=== PATIENT | female | born 1980 | race Two or more races ===

== ENCOUNTER → 2020-05-10 08:00 | Outpatient (CLI) | payer OTHER | END | disposition home or self-care (01) | LOC: PPH VACUNA 08:00 | DX: Z23 Encounter for immunization (principal) ==

== ENCOUNTER 2021-05-26 07:30 | Outpatient (CLI) | payer OTHER | END 2021-05-26 07:32 | disposition home or self-care (01) | LOC: LAB 07:30 | PROVIDERS: ATTEND Internal Medicine | DX: E11.65 Type 2 diabetes mellitus with hyperglycemia (principal); E03.8 Other specified hypothyroidism; I10 Essential (primary) hypertension; E55.9 Vitamin D deficiency, unspecified ==

== ENCOUNTER 2021-05-29 08:00 | Outpatient (CLI) | payer OTHER | END 2021-05-29 08:30 | disposition home or self-care (01) | LOC: PPH VACUNA 08:00 | PROVIDERS: ATTEND Emergency Medicine Pediatric Emergency Medicine | DX: Z23 Encounter for immunization (principal) ==

== ENCOUNTER 2021-07-14 08:00 | Outpatient (CLI) | payer OTHER | END 2021-07-14 08:30 | disposition home or self-care (01) | LOC: PPH VACUNA 08:00 | PROVIDERS: ATTEND Emergency Medicine Pediatric Emergency Medicine | DX: Z23 Encounter for immunization (principal) ==

== ENCOUNTER 2021-12-01 07:35 | Outpatient (CLI) | payer OTHER | END 2021-12-01 07:40 | disposition home or self-care (01) | LOC: LAB 07:35 | PROVIDERS: ATTEND General Practice | DX: E78.5 Hyperlipidemia, unspecified (principal); E55.9 Vitamin D deficiency, unspecified; N39.0 Urinary tract infection, site not specified; R42 Dizziness and giddiness ==

== ENCOUNTER 2021-12-06 10:15 | Outpatient (CLI) | payer OTHER | END 2021-12-06 10:19 | disposition home or self-care (01) | LOC: MAMO-SONO 10:15 | PROVIDERS: ATTEND General Practice | DX: N64.4 Mastodynia (principal) ==

== ENCOUNTER 2022-05-16 14:16 | Outpatient (CLI) | payer OTHER | END 2022-05-16 14:21 | disposition home or self-care (01) | LOC: PPH VACUNA 14:16 | PROVIDERS: ATTEND Emergency Medicine Pediatric Emergency Medicine | DX: Z23 Encounter for immunization (principal) ==

== ENCOUNTER 2022-05-24 13:19 | Outpatient (CLI) | payer OTHER | END 2022-05-24 13:24 | disposition home or self-care (01) | LOC: LAB 13:19 | PROVIDERS: ATTEND General Practice | DX: R50.9 Fever, unspecified (principal); R06.02 Shortness of breath; Z20.822 Contact with and (suspected) exposure to COVID-19 ==

== ENCOUNTER 2022-11-23 08:02 | Outpatient (CLI) | payer OTHER | END 2022-11-23 14:47 | disposition home or self-care (01) | LOC: LAB 08:02 | PROVIDERS: ATTEND Radiology Diagnostic Radiology | DX: R10.12 Left upper quadrant pain (principal) ==

== ENCOUNTER 2022-12-10 07:32 | Outpatient (CLI) | payer OTHER | END 2022-12-10 07:38 | disposition home or self-care (01) | LOC: TOM 07:32 | PROVIDERS: ATTEND Internal Medicine Gastroenterology | DX: R10.12 Left upper quadrant pain (principal) ==

== ENCOUNTER 2023-01-16 06:40 | Outpatient (CLI) | payer OTHER | END 2023-01-16 12:01 | disposition home or self-care (01) | LOC: LAB 06:40 | PROVIDERS: ATTEND Internal Medicine Gastroenterology | DX: K52.9 Noninfective gastroenteritis and colitis, unspecified (principal) ==

== ENCOUNTER 2024-06-15 09:35 | Inpatient (IN) | payer OTHER ==
[~2024-06-15] VITALS: Ht 152.4 cm; Wt 90.7 kg
[~2024-06-15 09:35] MED LIST: PROAIR RESPICL90 MCG; ZYRTEC10 M3 PO
[2024-06-15] MEDS ORDERED: ALBUTEROL SULFATE 3 ML/2.5 MG AMPUL.NEB IH SCH (11:15)
[2024-06-15] MEDS ORDERED: METHYLPREDNISOLONE SOD SUCC 125 MG VIAL IV ONE (11:15)
[2024-06-15 11:31] LABS: ABG PO2 86.9 mmHg (80-100); ABG pCO2 36.7 mmHg (35-45); BICARBONATE 22.2 mmol/l (23-25); SaO2 96.5 %; Tco2 23.4 mmol/l
[2024-06-15 12:07] LABS: allen test SATISFACTORY; o2 21 %; puncture site RADIAL RIGHT
[2024-06-15 13:30] LABS: HEMATOCRIT 37.3 % (36.0-45.00); HEMOGLOBIN 12.2 g/dL (12.0-15.00); MEAN CELL VOLUME 75.7 fL (80.00-100.00); MEAN CORPUSCULAR HEMOGLOBIN 24.7 pg (27.00-32.0); MEAN CORPUSCULAR HGB CONC 32.6 g/dl (32.0-36.0); PLATELET COUNT 362 K/uL (150-450); RED BLOOD COUNT 4.93 M/uL (4.00-6.00); RED CELL DISTRIBUTION WIDTH 15.7 % (11.5-14.5)
[2024-06-15] MEDS ORDERED: IPRATROPIUM BROMIDE 0.5 MG/2.5 ML AMPUL.NEB IH ONE (14:30)
[2024-06-15] MEDS ORDERED: 0.9 % SODIUM CHLORIDE 1,000 ML IV SCH (19:30)
[2024-06-15] MEDS ORDERED: AZITHROMYCIN 500 MG in DEXTROSE 5 % IN WATER 250 ML IV SCH (19:31)
[2024-06-15] MEDS ORDERED: CEFTRIAXONE SODIUM 2,000 MG in 0.9 % SODIUM CHLORIDE 100 ML IV SCH (19:32)
[2024-06-15] MEDS ORDERED: METHYLPREDNISOLONE SOD SUCC 40 MG VIAL IV SCH (19:32)
[2024-06-15] MEDS ORDERED: ACETAMINOPHEN 500 MG GEL..CAP PO PRN (19:45)
[2024-06-15] MEDS ORDERED: IPRATROPIUM/ALBUTEROL SULFATE 3 ML AMPUL.NEB IH SCH (21:00)
[2024-06-15 22:26] LABS: INR 1.12; PARTIAL THROMBOPLASTIN TIME 30.6 SECONDS (22.0-34.0); PROTHROMBIN TIME 12.1 SECONDS (9.0-11.5)
[2024-06-15] MEDS ORDERED: BENZONATATE 100 MG CAPSULE PO SCH (22:35)
[2024-06-15] MEDS ORDERED: GUAIFEN/DEXTROMETHORPHAN/PE 10 ML BLIST.PACK PO PRN (22:45)
[2024-06-15 23:10] LABS: ALBUMIN 3.4 gm/dL (3.4-5.0); BILIRUBIN TOTAL 0.23 mg/dL (0.3-1.2); CREATININE SERUM 0.86 mg/dL (0.55-1.02); GFR 71.35; GLOBULINA 3.7 G/DL (2.4-3.5); POTASSIUM 4.25 mEq/L (3.5-5.1); TOTAL PROTEIN 7.1 gm/dL (6.4-8.2)
[2024-06-16 00:39] VITALS: BP 159/90; O2SAT 99
[2024-06-16 03:05] LABS: PH,URINE 5.5 (5.0-8.0); URINE APPEARANCE Clear; URINE BILIRRUBIN Negative (NEGATIVE); URINE BLOOD Negative; URINE COLOR Yellow; URINE GLUCOSE Negative (NEGATIVE); URINE KETONE Trace (NEGATIVE); URINE LEUKOCYTE Negative; URINE NITRATE Negative; URINE PROTEIN Negative (NEGATIVE); URINE UROBILINOGEN 0.2 E.U./dl
[2024-06-16 03:09] LABS: URINE EPITHELIAL CELLS 11.8 uL (0.0-38.8); URINE RBC 2.9 uL (0.0-20.8)
[2024-06-16 05:51] VITALS: BP 165/98; O2SAT 99
[2024-06-16 07:57] VITALS: BP 179/85
[2024-06-16] MEDS ORDERED: FAMOTIDINE/PF 20 MG in 0.9 % SODIUM CHLORIDE 8 ML IV PUSH SCH (09:00)
[2024-06-16] MEDS ORDERED: FLUTICASONE PROPIONATE 50 MCG SPRAY NASAL SCH (09:00)
[2024-06-16 11:09] LABS: MAGNESIUM 2.4 mg/dL (1.8-2.4); PHOSPHOROUS 2.7 mg/dL (2.5-4.9)
[2024-06-16 11:12] LABS: C-REACTIVE PROTEIN 1.18 MG/DL (0.00-0.29)
[2024-06-16 11:47] LABS: MYCOPLASMA PNEUMONIAE IGM NON REACTIVE (NO REACTIVE)
[2024-06-16] MEDS ORDERED: MONTELUKAST SODIUM 10 MG TABLET PO SCH (17:00)
[2024-06-16 18:13] VITALS: BP 160/85; O2SAT 98
[2024-06-16] MEDS ORDERED: LORATADINE 10 MG TABLET PO SCH (21:00)
[2024-06-17] MEDS ORDERED: METHYLPREDNISOLONE SOD SUCC 40 MG VIAL IV SCH (01:00)
[2024-06-17 01:03] VITALS: BP 147/61; O2SAT 97
[2024-06-17 09:13] LABS: HEMATOCRIT 34.1 % (36.0-45.00); HEMOGLOBIN 11.1 g/dL (12.0-15.00); MEAN CELL VOLUME 75.2 fL (80.00-100.00); MEAN CORPUSCULAR HEMOGLOBIN 24.4 pg (27.00-32.0); MEAN CORPUSCULAR HGB CONC 32.5 g/dl (32.0-36.0); PLATELET COUNT 382 K/uL (150-450); RED BLOOD COUNT 4.53 M/uL (4.00-6.00)
[2024-06-17 09:35] VITALS: BP 160/85; O2SAT 98
[2024-06-17 09:53] LABS: ALBUMIN 3.2 gm/dL (3.4-5.0); BILIRUBIN TOTAL 0.25 mg/dL (0.3-1.2); CALCIUM 8.9 mg/dL (8.5-10.1); CREATININE SERUM 0.82 mg/dL (0.55-1.02); GFR 75.39; GLOBULINA 3.5 G/DL (2.4-3.5); MAGNESIUM 2.2 mg/dL (1.8-2.4); PHOSPHOROUS 2.7 mg/dL (2.5-4.9); POTASSIUM 3.89 mEq/L (3.5-5.1); TOTAL PROTEIN 6.7 gm/dL (6.4-8.2)
[2024-06-17 10:01] LABS: C-REACTIVE PROTEIN 0.46 MG/DL (0.00-0.29)
[2024-06-17] MEDS ORDERED: BUDESONIDE 0.25 MG/2 ML AMPUL.NEB IH NR (11:45)
[2024-06-17 12:50] LABS: PH,URINE 6.5 (5.0-8.0); URINE APPEARANCE Clear; URINE BILIRRUBIN Negative (NEGATIVE); URINE BLOOD Negative; URINE COLOR Yellow; URINE GLUCOSE Negative (NEGATIVE); URINE KETONE Negative (NEGATIVE); URINE LEUKOCYTE Negative; URINE NITRATE Negative; URINE PROTEIN Negative (NEGATIVE); URINE UROBILINOGEN 0.2 E.U./dl
[2024-06-17 12:53] LABS: URINE BACTERIA 12.5 uL (0.0-1933); URINE EPITHELIAL CELLS 39.5 uL (0.0-38.8); URINE RBC 4.4 uL (0.0-20.8); URINE WBC 3.7 uL (0.0-23.2)
[2024-06-17] MEDS ORDERED: BENZONATATE 200 MG CAPSULE PO SCH (13:00)
[2024-06-17 13:26] LABS: URINE CAST 0.15 uL (0.0-1.40)
[2024-06-17 18:37] VITALS: BP 150/80
[2024-06-17] MEDS ORDERED: BUDESONIDE 0.25 MG/2 ML AMPUL.NEB IH SCH (21:00)
[2024-06-18 00:59] VITALS: BP 120/64
[2024-06-18 08:53] VITALS: BP 170/100
[2024-06-18] MEDS ORDERED: ONDANSETRON HCL 2 MG/ML VIAL IV ONE (10:00)
[2024-06-18] MEDS ORDERED: ENALAPRILAT DIHYDRATE 1.25 MG/ML VIAL IV ONE (10:00)
[2024-06-18] MEDS ORDERED: LOSARTAN POTASSIUM 25 MG TABLET PO NR (17:45)
[2024-06-18 17:52] VITALS: BP 188/101; O2SAT 97
[2024-06-18 19:43] LABS: HEMATOCRIT 36.2 % (36.0-45.00); HEMOGLOBIN 11.6 g/dL (12.0-15.00); MEAN CORPUSCULAR HEMOGLOBIN 24.4 pg (27.00-32.0); MEAN CORPUSCULAR HGB CONC 32.1 g/dl (32.0-36.0); PLATELET COUNT 448 K/uL (150-450); RED BLOOD COUNT 4.76 M/uL (4.00-6.00); RED CELL DISTRIBUTION WIDTH 15.5 % (11.5-14.5)
[2024-06-18] MEDS ORDERED: FUROsemide 20 MG/2 ML VIAL IV SCH (20:06)
[2024-06-18] MEDS ORDERED: NITROGLYCERIN IN 5 % DEXTROSE 50 MG/250 ML BOTTLE IV SCH (20:15)
[2024-06-18] MEDS ORDERED: FAMOTIDINE/PF 20 MG in 0.9 % SODIUM CHLORIDE 8 ML IV PUSH SCH (21:00)
[2024-06-19 01:36] VITALS: BP 131/81
[2024-06-19 06:42] LABS: MEAN CELL VOLUME 74.9 fL (80.00-100.00); MEAN CORPUSCULAR HEMOGLOBIN 24.7 pg (27.00-32.0); PLATELET COUNT 429 K/uL (150-450); RED BLOOD COUNT 4.81 M/uL (4.00-6.00); RED CELL DISTRIBUTION WIDTH 15.8 % (11.5-14.5)
[2024-06-19 06:49] LABS: HEMOGLOBIN 11.9 g/dL (12.0-15.00)
[2024-06-19] MEDS ORDERED: NITROGLYCERIN IN 5 % DEXTROSE 250 ML IV SCH (07:00)
[2024-06-19 07:09] LABS: ALBUMIN 3.4 gm/dL (3.4-5.0); ALKALINE PHOSPHATASE 78 U/L (50-136); ALT/SGPT 42 U/L (12-78); ANION GAP 12 (10.0-20.0); AST/SGOT 10 U/L (15-37); BILIRUBIN TOTAL 0.36 mg/dL (0.3-1.2); BLOOD UREA NITROGEN 17 mg/dL (7-18); BUN CREA RATIO 26 (7.0-25.0); CALCIUM 9.3 mg/dL (8.5-10.1); CARBON DIOXIDE 26 mEq/L (21-32); CHLORIDE 104 mmol/L (98-107); CREATININE SERUM 0.66 mg/dL (0.55-1.02); GFR 96.85; GLOBULINA 3.6 G/DL (2.4-3.5); GLUCOSE FASTING 122 mg/dL (65-100); OSMOLALITY SERUM 277 MOSM/KG (275-295); PHOSPHOROUS 4.3 mg/dL (2.5-4.9); POTASSIUM 4.67 mEq/L (3.5-5.1); SODIUM 137 mmol/L (136-145)
[2024-06-19 07:10] LABS: C-REACTIVE PROTEIN < 0.29 MG/DL (0.00-0.29)
[2024-06-19] MEDS ORDERED: FAMOtidine 20 MG TABLET PO SCH (09:00)
[2024-06-19] MEDS ORDERED: LOSARTAN POTASSIUM 25 MG TABLET PO SCH (09:00)
[2024-06-19 09:50] VITALS: BP 156/90; O2SAT 99
[2024-06-19 18:17] VITALS: BP 156/80; O2SAT 98
[2024-06-19] MEDS ORDERED: METHYLPREDNISOLONE SOD SUCC 40 MG VIAL IV SCH (21:00)
[2024-06-20 00:16] VITALS: O2SAT 91
[2024-06-20 00:50] VITALS: BP 131/79; O2SAT 98
[2024-06-20] MEDS ORDERED: levoFLOXacin IN DEXTROSE 5 % 150 ML IV SCH (09:00)
[2024-06-20] MEDS ORDERED: LOSARTAN POTASSIUM 50 MG TABLET PO SCH (09:00)
[2024-06-20 10:10] VITALS: BP 161/98; O2SAT 99
[2024-06-20 18:14] VITALS: BP 184/94
[2024-06-21 02:20] VITALS: BP 137/82
[2024-06-21] MEDS ORDERED: LOSARTAN POTASSIUM 50 MG,LOSARTAN POTASSIUM 25 MG PO SCH (09:00)
[2024-06-21 09:51] VITALS: BP 155/99; O2SAT 97
[2024-06-21] MEDS ORDERED: METHYLPREDNISOLONE SOD SUCC 40 MG VIAL IV SCH (17:00)
[2024-06-21 20:10] VITALS: BP 150/80
[2024-06-22 01:41] VITALS: BP 130/77
[2024-06-22 08:54] VITALS: BP 157/95
[2024-06-22] MEDS ORDERED: LEVALBUTEROL HCL 1.25 MG/3 ML SOLUTION IH SCH (13:00)
[2024-06-22 19:16] VITALS: BP 160/85; O2SAT 97
[2024-06-23 01:00] VITALS: BP 117/74
[2024-06-23 06:56] LABS: HEMATOCRIT 36.8 % (36.0-45.00); HEMOGLOBIN 11.9 g/dL (12.0-15.00); MEAN CELL VOLUME 75.5 fL (80.00-100.00); MEAN CORPUSCULAR HEMOGLOBIN 24.5 pg (27.00-32.0); MEAN CORPUSCULAR HGB CONC 32.5 g/dl (32.0-36.0); PLATELET COUNT 467 K/uL (150-450); RED BLOOD COUNT 4.87 M/uL (4.00-6.00); RED CELL DISTRIBUTION WIDTH 16.1 % (11.5-14.5)
[2024-06-23] MEDS ORDERED: AMLODIPINE BESYLATE 2.5 MG TABLET PO SCH (09:00)
[2024-06-23] MEDS ORDERED: LOSARTAN POTASSIUM 100 MG TABLET PO SCH (09:00)
[2024-06-23 09:55] VITALS: BP 160/89; O2SAT 97
[2024-06-23 15:03] LABS: ALBUMIN 3.1 gm/dL (3.4-5.0); BILIRUBIN TOTAL 0.28 mg/dL (0.3-1.2); CALCIUM 9.5 mg/dL (8.5-10.1); CREATININE SERUM 1.02 mg/dL (0.55-1.02); GFR 58.6; GLOBULINA 3.4 G/DL (2.4-3.5); POTASSIUM 3.96 mEq/L (3.5-5.1); TOTAL PROTEIN 6.5 gm/dL (6.4-8.2)
[2024-06-23 16:54] VITALS: BP 148/92; O2SAT 98
[2024-06-23] MEDS ORDERED: METHYLPREDNISOLONE SOD SUCC 40 MG VIAL IV SCH (21:00)
[2024-06-24 01:31] VITALS: BP 129/78; O2SAT 97
[2024-06-24 09:50] VITALS: BP 152/80; O2SAT 97
== END 2024-06-24 14:59 | disposition home or self-care (01) | DRG 202 ==
LOC: ER 09:37 → MEDJ 21:52 → MEDI 06-23 10:04
PROVIDERS: Emergency Medicine; General Practice; Internal Medicine Infectious Disease; ADMIT Internal Medicine; ATTEND Internal Medicine
PROC: BB24ZZZ Computerized Tomography (CT Scan) of Bilateral Lungs (ICD-10-PCS; principal; 2024-06-15)
PROC: 3E0F7GC Introduction of Other Therapeutic Substance into Respiratory Tract, Via Natural or Artificial Opening (ICD-10-PCS; 2024-06-17)
PROC: B246ZZZ Ultrasonography of Right and Left Heart (ICD-10-PCS; 2024-06-18)
PROC: 4A12X4Z Monitoring of Cardiac Electrical Activity, External Approach (ICD-10-PCS; 2024-06-18)
DX: J45.41 Moderate persistent asthma with (acute) exacerbation (principal); E87.20 Acidosis, unspecified; J20.9 Acute bronchitis, unspecified; R09.02 Hypoxemia; I10 Essential (primary) hypertension; G47.33 Obstructive sleep apnea (adult) (pediatric); D72.828 Other elevated white blood cell count

== ENCOUNTER 2024-07-03 13:25 | Outpatient (CLI) | payer OTHER ==
[2024-07-03 13:49] LABS: HEMATOCRIT 33.7 % (36.0-45.00); HEMOGLOBIN 11.5 g/dL (12.0-15.00); MEAN CELL VOLUME 75.2 fL (80.00-100.00); MEAN CORPUSCULAR HEMOGLOBIN 25.6 pg (27.00-32.0); PLATELET COUNT 279 K/uL (150-450); RED BLOOD COUNT 4.49 M/uL (4.00-6.00); RED CELL DISTRIBUTION WIDTH 15.9 % (11.5-14.5)
== END 2024-07-03 15:47 | disposition home or self-care (01) ==
LOC: LAB 13:25
PROVIDERS: ATTEND Internal Medicine Pulmonary Disease
DX: E83.9 Disorder of mineral metabolism, unspecified (principal); J45.40 Moderate persistent asthma, uncomplicated

== ENCOUNTER 2024-09-09 07:41 | Emergency (ER) | payer OTHER ==
[~2024-09-09] VITALS: Ht 152.4 cm; Wt 90.7 kg
[2024-09-09] MEDS ORDERED: MILLIPRED DP5 MG (07:50)
[2024-09-09] MEDS ORDERED: WIXELA 250-501 EACH IH (07:50)
[2024-09-09] MEDS ORDERED: MAGNESIUM SULFATE IN WATER 2 GM/50 ML PIGGYBAG IV STA (08:54)
[2024-09-09] MEDS ORDERED: ENALAPRILAT DIHYDRATE 1.25 MG/ML VIAL IV STA (08:55)
[2024-09-09] MEDS ORDERED: cloNIDine HCL 0.2 MG TABLET PO STA (08:55)
[2024-09-09] MEDS ORDERED: BUDESONIDE 0.5 MG/2 ML AMPUL.NEB IH STA (08:55)
[2024-09-09] MEDS ORDERED: LEVALBUTEROL HCL 1.25 MG/3 ML SOLUTION IH SCH (09:00)
[2024-09-09] MEDS ORDERED: CLONIDINE HCL 0.1 MG TABLET PO ONE (09:05)
[2024-09-09] MEDS ORDERED: MAGNESIUM SULFATE 50% 1,000 MG/2 ML VIAL ONE (09:05)
[2024-09-09] MEDS ORDERED: ENALAPRILAT DIHYDRATE 1.25 MG/ML VIAL IV ONE (09:06)
[2024-09-09] MEDS ORDERED: BUDESONIDE 0.5 MG/2 ML AMPUL.NEB IH ONE (09:23)
[2024-09-09] MEDS ORDERED: LEVALBUTEROL HCL 1.25 MG/3 ML SOLUTION IH ONE (09:23)
[2024-09-09] MEDS ORDERED: METHYLPREDNISOLONE SOD SUCC 125 MG VIAL IV STA (10:10)
[2024-09-09 10:16] LABS: HEMATOCRIT 36.4 % (36.0-45.00); HEMOGLOBIN 11.7 g/dL (12.0-15.00); MEAN CELL VOLUME 75.3 fL (80.00-100.00); MEAN CORPUSCULAR HEMOGLOBIN 24.3 pg (27.00-32.0); MEAN CORPUSCULAR HGB CONC 32.3 g/dl (32.0-36.0); PLATELET COUNT 372 K/uL (150-450); RED BLOOD COUNT 4.83 M/uL (4.00-6.00); RED CELL DISTRIBUTION WIDTH 17.1 % (11.5-14.5)
[2024-09-09] MEDS ORDERED: METHYLPREDNISOLONE SOD SUCC 125 MG VIAL ONE (10:27)
[2024-09-09 10:40] LABS: CALCIUM 9.1 mg/dL (8.5-10.1); CREATININE SERUM 0.64 mg/dL (0.55-1.02); GFR 100.35; POTASSIUM 4.01 mEq/L (3.5-5.1)
[2024-09-09] MEDS ORDERED: 0.9 % SODIUM CHLORIDE 500 ML IV STA (10:50)
== END 2024-09-09 14:01 | disposition home or self-care (01) ==
LOC: ER 07:43
PROVIDERS: General Practice
DX: J45.909 Unspecified asthma, uncomplicated (principal); R05.9 Cough, unspecified; Z20.822 Contact with and (suspected) exposure to COVID-19

== ENCOUNTER 2024-10-29 14:10 | Outpatient (CLI) | payer OTHER ==
[~2024-10-29 14:10] MED LIST changes: +MILLIPRED DP5 MG; +WIXELA 250-501 EACH IH
== END 2024-10-29 14:20 | disposition home or self-care (01) ==
LOC: PPH VACUNA 14:10
PROVIDERS: ATTEND Emergency Medicine Pediatric Emergency Medicine
DX: Z23 Encounter for immunization (principal)

== ENCOUNTER 2025-06-22 14:27 | Outpatient (CLI) | payer OTHER | END 2025-06-22 14:31 | disposition home or self-care (01) | LOC: MAMO-SONO 14:27 | PROVIDERS: ATTEND Surgery | DX: N60.11 Diffuse cystic mastopathy of right breast (principal); N60.12 Diffuse cystic mastopathy of left breast ==